=== PATIENT | male | born 1950 | race Caucasian/White ===

== ENCOUNTER → 2021-08-19 | Day surgery (SDC) | payer BC ==
[~2021-08-19] MED LIST: COREG 12.5MG12.5 MG PO; DAILY VALUE1 EACH PO; DIABETA 5 MG TAB5 MG PO; GLUCOPHAGE 500500 MG PO; SULFAMETHOXAZO1 EACH PO; SYNJARDY PO; TRULICITY1.5 MG/0.5 SQ; TYLENOL 325MG325 MG PO; VITAMIN D31250 MCG PO; ZOCOR 40 MG TAB40 MG PO; [UNRECOGNIZED DRUG - SUPPLY] TOP
== END | disposition home or self-care (01) ==
LOC: OR 06:19
DX: Z12.11 Encounter for screening for malignant neoplasm of colon (principal); N40.0 Benign prostatic hyperplasia without lower urinary tract symptoms; I10 Essential (primary) hypertension; E11.9 Type 2 diabetes mellitus without complications; G47.30 Sleep apnea, unspecified; Z86.010 Personal history of colon polyps; Z93.3 Colostomy status; Z79.84 Long term (current) use of oral hypoglycemic drugs; Z79.899 Other long term (current) drug therapy; Z88.0 Allergy status to penicillin; Z88.8 Allergy status to other drugs, medicaments and biological substances; Z87.891 Personal history of nicotine dependence
CPT/HCPCS: 82962; J2704